=== PATIENT | female | born 1960 | race Caucasian/White ===

== ENCOUNTER 2024-03-07 21:05 | Emergency (ER) | payer MEDICAID ==
[~2024-03-07] VITALS: Ht 154.9 cm; Wt 64.0 kg
[2024-03-07 21:16] VITALS: TEMP 99.1; O2SAT 99
[2024-03-07 21:49] LABS: BASOPHILS % 0.5 % (0.0-2.0); EOSINOPHILS % 0.7 % (0.0-5.0); HEMATOCRIT. 41.3 % (36.0-48.0); HEMOGLOBIN. 13.8 g/dL (12.0-16.0); LYMPHOCYTES % 28.9 % (20.0-50.0); MEAN CORPUSCULAR HEMOGLOBIN 29.6 pg (28.0-32.0); MEAN CORPUSCULAR HGB CONC 33.5 g/dL (31.0-37.0); MEAN CORPUSCULAR VOLUME 88.4 fL (81.0-99.0); MEAN PLATELET VOLUME 7.2 fl (7.4-10.4); MONOCYTES % 6.5 % (2.0-8.0); NEUTROPHILS % 63.4 % (40.0-76.0); PLATELET 492 x1000/uL (130-400); RED BLOOD CELL COUNT 4.68 mill/uL (4.2-5.4); RED CELL DISTRIBUTION WIDTH 14.4 % (11.6-14.6); WHITE BLOOD COUNT 6.7 x1000/uL (4.5-11.0)
[2024-03-07 21:56] LABS: CHLORIDE 108 mEq/L (98-107); POTASSIUM 3.4 mEq/L (3.5-5.1); SODIUM 142 mEq/L (136-145)
[2024-03-07 21:57] LABS: CARBON DIOXIDE 27 mEq/L (21-32)
[2024-03-07 21:58] LABS: CALCIUM 9.9 mg/dL (8.7-10.4); INR 0.9; PROTHROMBIN TIME 10.1 sec (9.6-11.0)
[2024-03-07 22:02] LABS: CREATININE 0.9 mg/dL (0.6-1.0)
[2024-03-07 22:03] LABS: GLUCOSE 125 mg/dL (70-105); UREA NITROGEN BLOOD 15 mg/dL (9-23)
[2024-03-07 22:04] LABS: ALANINE AMINOTRANSFERASE 14 IU/L (10-49); ALBUMIN 4.7 g/dL (3.2-4.8); ASPARTATE AMINOTRANSFERASE 22 IU/L (<34)
[2024-03-07 22:05] LABS: BILIRUBIN TOTAL 0.3 mg/dL (0.1-1.0); PROTEIN TOTAL 7.8 g/dL (6.0-8.3)
[2024-03-07 22:06] LABS: BILIRUBIN DIRECT < 0.1 mg/dL (<=3.0)
[2024-03-07] MEDS ORDERED: IOHEXOL-300 100 ML BOTTLE ONE (23:56)
[2024-03-08] MEDS: POTASSIUM CHLORIDE 20MEQ/PACKET PO NR (00:03)
[2024-03-08] MEDS: ACETAMINOPHEN 1000MG/100ML 100 ML IV ONE (00:04)
[2024-03-08] MEDS ORDERED: ACET-2708 MT (00:17)
[2024-03-08 00:18] LABS: CLARITY URINE CLOUDY (CLEAR); COLOR URINE YELLOW (YELLOW); GLUCOSE URINE NEGATIVE (NEGATIVE); KETONES URINE NEGATIVE (NEGATIVE); LEUKOCYTE ESTERASE URINE 3+ (NEGATIVE); NITRITE URINE NEGATIVE (NEGATIVE); OCCULT BLOOD URINE NEGATIVE (NEGATIVE); PROTEIN URINE NEGATIVE (NEGATIVE); UROBILINOGEN URINE 0.2 E.U./dL (0.2-1.0)
[2024-03-08 00:43] VITALS: BP 130/63; PULSE 87; RESP 16; O2SAT 99
[2024-03-08 01:56] LABS: SQUAMOUS EPITHELIAL CELL URINE 1+ /lpf (RARE/1+)
[2024-03-08 01:58] LABS: BACTERIA URINE TRACE; RBC URINE 0-2 /hpf (0-2)
== END 2024-03-08 00:54 | disposition home or self-care (01) ==
LOC: ER 21:09
DX: M25.531 Pain in right wrist (principal); R10.12 Left upper quadrant pain; Z90.710 Acquired absence of both cervix and uterus; V89.2XXA Person injured in unspecified motor-vehicle accident, traffic, initial encounter; Y93.89 Activity, other specified; Y92.410 Unspecified street and highway as the place of occurrence of the external cause; Y99.8 Other external cause status
CPT/HCPCS: 99285; 74177; 96365 ×2; 80076; 80048; 83690; 85025; 85610; 36415; 71101; 73110; 93005; 81003; Q9967; J0131